=== PATIENT | female | born 1975 | race Caucasian/White ===

== ENCOUNTER 2020-08-12 12:00 | Outpatient (CLI) | payer OTHER ==
--- NOTE | 2020-08-12 12:49 | RAD ---
Left ring finger 3 views HISTORY: Injury. FINDINGS: Very mild joint space narrowing and osteophytosis. No acute fracture, dislocation, or aggre ssive osseous erosions. IMPRESSION : Minimal osteoarthritic changes. No acute osseous abnormalities are demonstrated.
== END 2020-08-12 12:01 | disposition home or self-care (01) ==
LOC: BICRAD 12:00
PROVIDERS: ATTEND Physician Assistant
DX: M79.645 Pain in left finger(s) (principal); M19.042 Primary osteoarthritis, left hand

== ENCOUNTER 2021-03-09 19:00 | Outpatient (CLI) | payer OTHER | END 2021-03-09 19:01 | disposition home or self-care (01) | LOC: SLEEPLAB 19:00 | PROVIDERS: ATTEND Physician Assistant | DX: G47.33 Obstructive sleep apnea (adult) (pediatric) (principal); R53.83 Other fatigue; R51.9 Headache, unspecified; F41.8 Other specified anxiety disorders; K21.9 Gastro-esophageal reflux disease without esophagitis; G47.00 Insomnia, unspecified; G47.10 Hypersomnia, unspecified; E66.9 Obesity, unspecified; Z68.36 Body mass index [BMI] 36.0-36.9, adult | CPT/HCPCS: 95810 ==

== ENCOUNTER 2022-04-13 09:46 | Outpatient (CLI) | payer OTHER | END 2022-04-13 09:47 | disposition home or self-care (01) | LOC: BICULT 09:46 | PROVIDERS: ATTEND Internal Medicine Gastroenterology | DX: K76.0 Fatty (change of) liver, not elsewhere classified (principal); E66.3 Overweight; E78.5 Hyperlipidemia, unspecified; Z83.79 Family history of other diseases of the digestive system | CPT/HCPCS: 76705 ==

== ENCOUNTER 2022-04-30 16:07 | Emergency (ER) | payer OTHER ==
[~2022-04-30 16:07] MED LIST: Iopamidol-370 76% 500 ML 1 ML ONE
[2022-04-30 16:34] LABS: #Basophils 0.1 thou/uL (0.0-0.2); #Eosinphils 0.1 thou/uL (0.0-0.7); #Lymphocytes 3.4 thou/uL (1.20-3.40); #Monocytes 1.2 thou/uL (0.11-0.59); #Neutrophils 6.4 thou/uL (1.40-6.50); %Basophils 0.9 % (0.0-1.0); %Eosinophils 1.1 % (0.0-10.0); %Lymphocytes 30.7 % (21.0-51.0); %Monocytes 10.2 % (0.0-10.0); %Neutrophils 57.1 % (42.0-75.0); Hemoglobin 12.8 g/dL (12.0-16.0); Mean Corpuscular HGB CONC 32.7 g/dL (32.0-36.0); Mean Corpuscular Hemoglobin 31.9 pg (27.0-31.0); Mean Corpuscular Volume 97.4 fL (78.0-98.0); Mean Platelet Volume 8.1 fL (7.4-10.4); Platelet Count 232 thou/uL (130-400); RBC Distribution Width 12.6 % (11.5-14.5); White Blood Cell (WBC) Count 11.2 thou/uL (4.8-10.8)
[2022-04-30 16:44] LABS: PTT 25.6 sec (22.9-36.1); Prothrombin Time 11.7 sec (12.0-14.7)
[2022-04-30 16:48] LABS: INR-International Normal Ratio 0.9
[2022-04-30 16:55] LABS: ALT (SGPT) 66 U/L (8-55); AST (SGOT) 46 U/L (5-34); Albumin 4.1 g/dL (3.5-5.0); Alkaline Phosphatase 163 U/L (40-110); Anion Gap 14 mmol/L (10-20); BUN (Urea Nitrogen) 7 mg/dL (7.0-18.7); Bilirubin, Total 0.6 mg/dL (0.2-1.2); CK (CPK) 113 U/L (29-168); Calc. Creatinine Clearance 0 mL/min (70-130); Calcium 9.7 mg/dL (7.8-10.44); Carbon Dioxide 27 mmol/L (22-29); Chloride 103 mmol/L (98-107); Glucose 97 mg/dL (70-105); Potassium 3.9 mmol/L (3.5-5.1); Protein, Total 7.1 g/dL (6.0-8.3); Sodium 140 mmol/L (136-145)
[2022-04-30 16:56] LABS: BHCG - Serum Negative (NEGATIVE); Pregs Control Background? CLEAR/WHITE (CLR/WHITE); Pregs Control Bar Appear? YES (CONTROL BAR)
[2022-04-30 17:09] LABS: Magnesium 1.8 mg/dL (1.6-2.6)
[2022-04-30 17:21] LABS: Actual Bicarbonate (HCO3v) 27 mEq/L (22-28); Analyzer IN Cardio ER; Base Excess 1.6 mEq/L (-2.0 to +3.0); Calcium, Ionized (venous) 1.14 mmol/L (1.16-1.32); Chloride (VBG) 102 mmol/L (98-106); Hemoglobin (Hb) 12.5 g/dL (11.7-16.0); Sodium 136.5 mmol/L (133-146); pH (venous) 7.38 (7.32-7.43)
[2022-04-30 17:25] LABS: Bilirubin Negative (Negative); Blood, Urine Negative (Negative); Clarity Clear (Clear); Glucose, Urine (Dipstick) Normal (Negative); Ketone, Urine Negative (Negative); Leukocyte Negative Leu/uL (Negative); Nitrite Negative (Negative); Protein, Urine (Dipstick) Negative (Neg-Trace); Specific Gravity, Urine 1.027 (1.002-1.036); Urobilinogen Normal mg/dL (Less than 2); pH, Urine 7.5 (5.0-9.0)
[2022-04-30 18:38] LABS: Thyroid Stimulating Hormone 1.5303 uIU/mL (0.35-4.94)
== END 2022-04-30 21:54 | disposition home or self-care (01) ==
LOC: ERS 16:07
DX: G93.40 Encephalopathy, unspecified (principal); N63.0 Unspecified lump in unspecified breast
CPT/HCPCS: 36415; 36416; 70450; 70496; 70498; 71045; 71275; 80053; 81003; 82550; 82805; 83735; 84443; 84484; 84703; 85025; 85379; 85610; 85730; 93005; 94760

== ENCOUNTER 2022-06-02 14:02 | Outpatient (CLI) | payer OTHER | END 2022-06-02 14:03 | disposition home or self-care (01) | LOC: BICMAMMO 14:02 | PROVIDERS: ATTEND Nurse Practitioner Family | DX: R92.2 Inconclusive mammogram (principal) | CPT/HCPCS: 77066; G0279 ==

== ENCOUNTER 2023-06-08 14:23 | Outpatient (CLI) | payer OTHER | END 2023-06-08 14:24 | disposition home or self-care (01) | LOC: BICMAMMO 14:23 | PROVIDERS: ATTEND Nurse Practitioner Family | DX: N63.11 Unspecified lump in the right breast, upper outer quadrant (principal) | CPT/HCPCS: 77066; G0279 ==

== ENCOUNTER 2023-12-02 09:44 | Outpatient (CLI) | payer OTHER | END 2023-12-02 09:45 | disposition home or self-care (01) | LOC: BICRAD 09:44 | PROVIDERS: ATTEND Nurse Practitioner Family | DX: R05.3 Chronic cough (principal); U09.9 Post COVID-19 condition, unspecified | CPT/HCPCS: 71046 ==

== ENCOUNTER 2024-04-20 15:01 | Outpatient (CLI) | payer OTHER | END 2024-04-20 15:02 | disposition home or self-care (01) | LOC: BICRAD 15:01 | PROVIDERS: ATTEND Nurse Practitioner Family | DX: M25.551 Pain in right hip (principal) ==

== ENCOUNTER 2024-09-11 12:15 | Outpatient (CLI) | payer OTHER | END 2024-09-11 12:16 | disposition home or self-care (01) | LOC: BICMAMMO 12:15 | PROVIDERS: ATTEND Nurse Practitioner Family | DX: Z12.31 Encounter for screening mammogram for malignant neoplasm of breast (principal) | CPT/HCPCS: 77063; 77067 ==

== ENCOUNTER 2024-12-07 10:01 | Outpatient (CLI) | payer OTHER | END 2024-12-07 10:02 | disposition home or self-care (01) | LOC: ULT 10:01 | PROVIDERS: ATTEND Nurse Practitioner Family | DX: R59.0 Localized enlarged lymph nodes (principal) | CPT/HCPCS: 76536 ==

== ENCOUNTER 2025-06-14 14:10 | Outpatient (CLI) | payer OTHER | END 2025-06-14 14:11 | disposition home or self-care (01) | LOC: SCSMRI 14:10 | PROVIDERS: ATTEND Nurse Practitioner Family | DX: M25.572 Pain in left ankle and joints of left foot (principal); M89.9 Disorder of bone, unspecified ==